=== PATIENT | female | born 1970 | race Caucasian/White ===

== ENCOUNTER 2023-08-14 14:53 | Outpatient (CLI) | payer OTHER ==
[2023-08-14 15:22] LABS: BASOPHILS # (AUTO) 0.1 10^3/uL (0.0-0.1); BASOPHILS % (AUTO) 1.3 %; EOSINOPHILS # (AUTO) 0.2 10^3/uL (0.0-0.7); EOSINOPHILS % (AUTO) 3.8 %; HCT - HEMATOCRIT 41.3 % (37.0-47.0); HGB - HEMOGLOBIN 13.5 g/dL (12.0-16.0); LYMPHOCYTES # (AUTO) 1.9 10^3/uL (1.5-3.5); LYMPHOCYTES % (AUTO) 33.2 %; MEAN CORPUSCULAR HEMOGLOBIN 29.8 pg (27.0-31.0); MEAN CORPUSCULAR HGB CONC 32.7 g/dL (32.0-36.0); MEAN CORPUSCULAR VOLUME 91.2 fL (81.0-99.0); MEAN PLATELET VOLUME 10.2 fL (7.9-10.8); MONOCYTES # (AUTO) 0.5 10^3/uL (0.0-1.0); MONOCYTES % (AUTO) 8.3 %; PLT - PLATELET COUNT 286 10^3/uL (130-450); RED BLOOD COUNT 4.53 10^6/uL (4.20-5.40); RED CELL DISTRIBUTION WIDTH 13.4 % (12.0-15.0); WHITE BLOOD COUNT 5.6 x10^3/uL (4.8-10.8)
[2023-08-14 15:41] LABS: CHOL/HDL RATIO 3.4 (<4.4); CHOLESTEROL 261 mg/dL; HDL CHOLESTEROL 77 mg/dL; LDL CHOLESTEROL,CALCULATED 166 mg/dL; LDL/HDL RATIO 2.2 (<4.4); TRIGLYCERIDES 90 mg/dL (48-352); VLDL CHOLESTEROL 18 mg/dL
[2023-08-14 16:04] LABS: THYROID STIMULATING HORMONE 0.97 uIU/mL (0.34-5.60)
[2023-08-14 16:20] LABS: ALBUMIN 4.4 g/dL (3.2-5.5); ALBUMIN/GLOBULIN RATIO 1.5 (1.0-2.2); ALKALINE PHOSPHATASE 49 IU/L (42-121); ALT ALANINE AMINOTRANSFERASE 13 IU/L (10-60); AST ASPARTATE AMINOTRANSFERASE 13 IU/L (10-42); BILIRUBIN,TOTAL 0.6 mg/dL (0.2-1.0); BUN - BLOOD UREA NITROGEN 20 mg/dL (6-20); CALCIUM 9.5 mg/dL (8.5-10.3); CARBON DIOXIDE - CO2 28 mmol/L (21-32); CHLORIDE 106 mmol/L (101-111); CREATININE 0.8 mg/dL (0.6-1.3); GFR - MDRD 75 (>89); GLUCOSE 88 mg/dL (74-104); SODIUM 140 mmol/L (135-145); TOTAL PROTEIN 7.3 g/dL (6.4-8.9)
[2023-08-14 22:08] LABS: ESTIMATED AVERAGE GLUCOSE 105 mg/dL (70-100); HEMOGLOBIN A1c% 5.3 % (4.27-6.07)
[2023-08-15 02:08] LABS: VITAMIN D 25-HYDROXY 70.6 ng/mL (30.0-100.0)
[2023-08-15 07:10] LABS: PROGESTERONE 0.7 ng/mL (.)
== END 2023-08-14 14:54 | disposition home or self-care (01) ==
LOC: LAB 14:53
PROVIDERS: ATTEND Family Medicine
DX: R53.82 Chronic fatigue, unspecified (principal); Z79.890 Hormone replacement therapy; Z13.220 Encounter for screening for lipoid disorders; R19.7 Diarrhea, unspecified
CPT/HCPCS: 36415; 80053; 80061; 81599; 82306; 82607; 83001; 83002; 83036; 83721; 84144; 84403; 84443; 85025

== ENCOUNTER 2023-08-14 14:58 | Outpatient (CLI) | payer OTHER | END 2023-08-14 14:59 | disposition home or self-care (01) | LOC: LAB 14:58 | PROVIDERS: ATTEND Family Medicine | DX: R19.7 Diarrhea, unspecified (principal); R53.82 Chronic fatigue, unspecified; Z79.890 Hormone replacement therapy; Z13.220 Encounter for screening for lipoid disorders | CPT/HCPCS: 36415; 80053; 80061; 81599; 82306; 82607; 83001; 83002; 83036; 83721; 84144; 84403; 84443; 85025 ==

== ENCOUNTER 2023-08-17 08:00 | Outpatient (CLI) | payer OTHER ==
[2023-08-17 14:17] LABS: H. PYLORIS ANTIGEN STL NEGATIVE (Negative)
[2023-08-18 06:08] LABS: ADENOVIRUS F 40/41 Not Detected (Not Detected); ASTROVIRUS Not Detected (Not Detected); C DIFFICILE TOXIN A/B Not Detected (Not Detected); CAMPYLOBACTER Not Detected (Not Detected); CRYPTOSPORIDIUM Not Detected (Not Detected); CYCLOSPORA CAYETANENSIS Not Detected (Not Detected); ENTAMOEBA HISTOLYTICA Not Detected (Not Detected); ENTEROAGGREGATIVE E COLI Not Detected (Not Detected); ENTEROPATHOGENIC E COLI Not Detected (Not Detected); ENTEROTOXIGENIC E COLI Not Detected (Not Detected); GIARDIA LAMBLIA Not Detected (Not Detected); NOROVIRUS GI/GII Not Detected (Not Detected); PLESIOMONAS SHIGELLOIDES Not Detected (Not Detected); ROTAVIRUS A Not Detected (Not Detected); SALMONELLA Not Detected (Not Detected); SAPOVIRUS Not Detected (Not Detected); SHIGA-TOXIN-PRODUCING E COLI Not Detected (Not Detected); SHIGELLA/ENTEROINVASIVE E COLI Not Detected (Not Detected); VIBRIO Not Detected (Not Detected); VIBRIO CHOLERAE Not Detected (Not Detected); YERSINIA ENTEROCOLITICA Not Detected (Not Detected)
[2023-08-19 16:08] LABS: FECAL FATS NEUTRAL Normal (.); FECAL FATS TOTAL Increased (.)
== END 2023-08-17 23:59 | disposition home or self-care (01) ==
LOC: LAB.R 08:00
PROVIDERS: ATTEND Family Medicine
DX: R19.7 Diarrhea, unspecified (principal)
CPT/HCPCS: 82705; 83630; 87177; 87209; 87338; 87493; 87507

== ENCOUNTER 2023-10-17 08:00 | Outpatient (CLI) | payer OTHER | END 2023-10-17 23:59 | disposition home or self-care (01) | LOC: LAB 08:00 | PROVIDERS: ATTEND Nurse Practitioner | DX: R30.0 Dysuria (principal) | CPT/HCPCS: 87086 ==